=== PATIENT | female | born 1975 | race Caucasian/White ===

== ENCOUNTER 2024-09-07 13:54 | Outpatient (AMB) | payer OTHER, SELFPAY ==
--- NOTE | 2024-09-07 14:02 | A.OFFVIS_ITS ---
Vital Signs 09/07/24 14:10 Height 5 ft 3 in Weight 143 lb BMI 25.3 BP 124/59 L Blood Pressure Location Rt brachial Position Sitting Pulse 73 Intake Visit Reasons: gallbladder sludge Intake Note: Patient is seen in office for gallbladder sludge. Pt c/o: on and off pain on RUQ that spreads to back. Experienced nausea, diarrhea with 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 The pain began in March 2024 in his always located in the right upper quadrant with radiation into the back. She denied chest pain. The pain seems to be associated with fatty food intake including meat. Recently she has noted the pain even without eating fatty fo ods. She was found to have gallbladder sludge on a recent ultrasound performed at [facility] on 07/26/2024. No pericholecystic fluid or wall thickening was identified. She presents today to discuss her options regarding the abdominal pain. She reports that her daughter will be having a baby next month so she is not interested in undergoing surgery in the short term but may consider this later in the fall. [facility] Surgical History Hx of removal of cyst Social History Alcohol intake: never Patient Tobacco Use Status: Never used Tobacco Review of Systems Const All systems reviewed & are unremarkable except as noted in HPI and below Physical Exam Vital Signs: Last Vital Signs Pulse 73 09/07/24 14:10 BP 124/59 L 09/07/24 14:10 BMI result Body Mass Index 25.3 Const General: cooperative and no acute distress Nutritional Appearance: well nourished Orientation/consciousness: patient oriented x3 Limitations: no limitations HEENT Head: Yes normocephalic and Yes atraumatic Ears: hearing grossly normal bilaterally Resp Effort & Inspection: normal respiratory effort, no audible wheezes, no cough and no respiratory distress Cardio Jugular venous distension: no JVD GI Inspection: Yes normal to inspection Skin Other: Warm, dry, no rash Neuro General: patient oriented x3 Extrem General: Yes no clubbing, cyanosis or edema Assessment & Plan Assessment & Plan (1) Biliary colic: Code(s): K80.50 - Calculus of bile duct without cholangitis or cholecystitis without obstruction Category: Medical Plan 49-year-old female patient presenting with recurrent biliary colic with complaints of right upper quadrant abdominal pain radiating into the back. Pain seems to be associated with fatty food intake but lately is occurring even without fatty food intake. We discussed laparoscopic or possible open cholecystectomy and as an option versus continued diet restriction. She inquired about removal of the stones without a surgical procedure which would not be possible. We will plan on laparoscopic cholecystectomy in the fall. After discussion of the procedure, risks, and alternatives, she consents to the laparoscopic or possible open cholecystectomy. Coding Level of Care Code New Pt Level 4 (29174) Diagnoses Biliary colic K80.50
[2024-09-07 14:10] VITALS: BP 124/59; PULSE 73; BMI 25.3
== END 2024-09-07 14:31 | disposition home or self-care (01) ==
LOC: HO.HGS 13:55
PROVIDERS: PCP Internal Medicine; Visit Provider Surgery
DX: K80.50 Calculus of bile duct without cholangitis or cholecystitis without obstruction (principal)
CPT/HCPCS: 99204

== ENCOUNTER → 2024-09-07 13:54 | Outpatient (BNVA) | payer OTHER, SELFPAY | PROVIDERS: PCP Internal Medicine; Visit Provider Surgery | DX: K80.50 Calculus of bile duct without cholangitis or cholecystitis without obstruction (principal) | CPT/HCPCS: 99202 ==